=== PATIENT | male | born 1960 | race Caucasian/White ===

== ENCOUNTER → 2018-02-27 | Outpatient (CLI) | payer OTHER ==
--- NOTE | 2018-03-01 17:57 | ECHO ---
[email or web address] [address] [address] Main: [phone] Fax: Transthoracic Echocardiogram Name: KAN KERN MR#: [id number] Study Date: 02/27/2018 Study Time: 02:07 PM Date of : 1960 Age: 57 year(s) Height: ( ) Weight: ( ) BSA: Gender: Male Examination: Echo Indication: Murmur Image Quality: Excellent Contrast: Requested by: Saray Werner BP: / Heart Rate: Rhythm: Indication: Murmur Procedure Staff French Drawer: Genoveva Benites RDCS Reading Physician: Jorge Luis Whitten MD Requesting Provider: Conclusions: Severely dilated left ventricle. Global hypercontractility of the left ventricle. Normal RV function. The left atrium is severely dilated. The right atrium is normal in size. There is severe prolapse of the posterior leaflet of the mitral valve. Severe mitral valve regurgitation is present. The aortic valve is normal in appearance and function. The aortic valve is tri-leaflet. Mild tricuspid regurgitation is present. The pulmonary artery pressure is mildly increased. No pericardial effusion. Measurements: Chambers Valvular Assessment AV/MV Valvular Assessment TV/PV Normal Normal Normal Name Value Range Name Value Range Name Value Range Ao Neha (MM): 3.7 cm (2.2 cm-3.7 AV Vmax: 1.01 m/s (1 m/s-1.7 TR Vmax: 3.12 mm/s ( - ) cm) m/s) TR PGmax: 39 mmHg ( - ) IVSd (2D): 0.7 cm (0.6 cm-1.1 AV maxP mmHg ( - ) syst. PAP: 44 mmHg ( - ) cm) AV meanP mmHg ( - ) LVDd (2D): 7.0 cm (4.2 cm-5.9 LVOT Vmax: 0.62 m/s (0.7 m/s-1.1 cm) m/s) LVDs (2D): 4.2 cm (2.1 cm-4 ILAN (Vmax): 2.6 cm2 ( - ) cm) ILAN (VTI): 2.7 cm ( - ) LVPWd (2D): 0.8 cm (0.6 cm-1 MV maxP mmHg ( - ) cm) MV meanP mmHg ( - ) LVOTd 2.3 cm 2.3 cm mm MVA (Vmax): 1.2 m/s ( - ) LVEF (MOD4): 68 % (>=55 %) EF Range: 70-75 % Patient: KAN KERN Study Date: 02/27/2018 Page 1 of 2 02:07 PM Continued Measurements: Chambers Valvular Assessment AV/MV Valvular Assessment TV/PV Name Value Name Value Name Value LADs: 5.2 cm MV Annulus: 4.2 cm CVP (est.): 5 mmHg LADs Lon.3 cm MV VTI: 40.90 cm LA Area: 37.5 cm2 MR ERO: 1.010 cm2 LA Volume: 155 ml MR PISA radius: 17 mm MR Reg. Volume: 145 ml MR Reg. Fraction: 25 % Additional Vessels Name Value Ao Ascendin.4 cm Findings: Left Ventricle: Severely dilated left ventricle. No LV hypertrophy. Global hypercontractility of the left ventricle. The ejection fraction is estimated to be 70-75 %. No regional wall motion abnormality. Right Ventricle: Normal size right ventricle. Normal RV function. Left Atrium: The left atrium is severely dilated. Right Atrium: The right atrium is normal in size. Mitral Valve: There is severe prolapse of the posterior leaflet of the mitral valve. Severe mitral valve regurgitation is present. MV leaflets do not coapt.. Aortic Valve: The aortic valve is normal in appearance and function. The aortic valve is tri-leaflet. Trivial aortic valve regurgitation. Tricuspid Valve: The tricuspid valve is normal in appearance and function. Mild tricuspid regurgitation is present. The pulmonary artery pressure is mildly increased. Pulmonic Valve: The pulmonic valve is normal in appearance and function. Trivial to mild pulmonic valve regurgitation. Aorta: The aorta is normal. Pericardium: No pericardial effusion. (No Signature Object) Patient: KAN KERN Study Date: 02/27/2018 Page 2 of 2 02:07 PM [id number]
== END ==
LOC: FCP 13:26
PROVIDERS: ATTEND Physician Assistant Medical
DX: I35.0 Nonrheumatic aortic (valve) stenosis (principal); I51.7 Cardiomegaly; I34.1 Nonrheumatic mitral (valve) prolapse

== ENCOUNTER 2018-04-11 09:15 | Inpatient (IN) | payer OTHER ==
[2018-04-11] MEDS ORDERED: FAMOTIDINE 20 MG TAB PO ONE (09:18)
[2018-04-11] MEDS ORDERED: DIAZEPAM 5 MG TAB PO ONE (09:18)
[2018-04-11] MEDS ORDERED: ASPIRIN EC 325 MG TAB PO ONE ×2 (09:18→09:35)
[2018-04-11] MEDS ORDERED: NS 1,000 ML IV ONE (09:18)
[2018-04-11] MEDS ORDERED: diphenhydrAMINE 25 MG CAP PO ONE ×2 (09:18→09:35)
[2018-04-11] MEDS ORDERED: LIDOCAINE 1% 300 MG/30 ML SDV ONE (09:32)
[2018-04-11] MEDS ORDERED: fentaNYL 100 MCG/2 ML INJ ONE ×2 (09:33→10:27)
[2018-04-11] MEDS ORDERED: MIDAZOLAM 2 MG/2 ML VIAL ONE ×2 (09:33→10:28)
[2018-04-11] MEDS ORDERED: IOPAMIDOL (ISOVUE-370) 150 ML BTL IV ONE (09:33)
[2018-04-11] MEDS ORDERED: FAMOTIDINE 20 MG TAB ONE (09:35)
[2018-04-11] MEDS ORDERED: DIAZEPAM 5 MG TAB ONE (09:35)
[2018-04-11 09:54] LABS: PLATELET COUNT 238 10^3/uL (150-400)
--- NOTE | 2018-04-11 09:54 | PDHPUP ---
History & Physical Update H&P update statement: This history and physical update is based on an assessment of the patient which was completed after admission or registration (within 24 hours), but prior to the surgery/procedure. H&P update: H&P reviewed & patient examined, no change in patient's condition since H&P completed
--- NOTE | 2018-04-11 09:54 | PDPROPOC ---
Sedation Plan of Care Sedation Plan of Care: mental status noted, patient educated of risks, benefits , alternatives, patient can tolerate sedation ASA Classification: ASA 2 Planned drugs: fentanyl, midazolam Mallampati Score: Class 2 Mallampati Reference Image: Patient passed 3-3-2 rule?: Yes
--- NOTE | 2018-04-11 09:58 | PDGENHP ---
History & Physical Chief Complaint: severe MR History of Present Illness: 57 yo male wih severe MR. Cath for potential surgery Pertinent Past, Social, Family History: 4 beers daily Relevant Physical Exam: rr s1 s2 2/6 bipin. cta b. soft nt, ng. no edema Cardiorespiratory Assessment: see above
[2018-04-11 10:02] LABS: INR 0.97 (0.83-1.16); PROTIME(PATIENT) 13.1 SEC (12.0-15.0)
[2018-04-11] MEDS ORDERED: ALPRAZolam 0.5 MG TAB PO PRN ×2 (11:13→11:54)
[2018-04-11] MEDS ORDERED: ZOLPIDEM TARTRATE 5 MG TAB PO PRN (11:54)
--- NOTE | 2018-04-11 12:15 | PDGENHP ---
History and Physical - Chief Complaint severe MR - History of Present Illness 57M seen last on 03/08 for surgical evaluation of severe MR here admitted in advance of elective repair for risk stratification. LHC was performed today and ruled-out CAD. In brief, a murmur was discovered at a check-up with his PCP. He was sent to see cardiology where an ECHO confirmed severe MR with severely dilated LA/LV, mild MR, trivial AI and a LVEF of 70%. Since learning of the murmur the pt states he experiences anxiety and takes Xanax to relax. Pt appreciates extra heart-beats and denies weakness, lethargy, presyncope, syncope, CP, SOB, PND, orthopnea, abd fullness, urinary problems, or BLE edema. Pt denies other medical issues. His only surgery was a hip replacement. He denies tobacco abuse and states he drinks 5-6 "light" beers every night for as long as he can remember and denies withdrawal sxs if he takes a night off. History Information - Allergies/Home Medication List Allergies/Adverse Reactions: No Known Allergies Allergy (Verified 04/03/18 14:30) Home Medications: ALPRAZolam [Xanax 0.5 MG (*)] 0.5 mg PO HS PRN 04/04/18 [Last Taken Unknown] Cholecalciferol Vit D3 [Vitamin D3 (*)] 1,000 units PO DAILY 04/04/18 [Last Taken Unknown] Herbals/Supplements -Info Only 1 ea PO DAILY 04/04/18 [Last Taken Unknown] Melatonin [Melatonin 3 MG (*)] 3 mg PO HS PRN 04/04/18 [Last Taken Unknown] I have personally reviewed and updated: medical history (as per HPI), social history, surgical history - Surgical History Additional surgical history: right hip replacement - Family History Positive for: non-pertinent - Social History Smoking Status: Never smoked Alcohol Use: Heavy Drug Use: None Review of Systems Review of Systems: ROS: 10pt was reviewed & negative except for what was stated in HPI & below Physical Exam Physical Exam: Constitutional: no apparent distress, appears nourished, not in pain Eyes: anicteric sclera Ears, Nose, Mouth, Throat: moist mucous membranes, hearing normal, ears appear normal, no oral mucosal ulcers Cardiovascular: no murmur, rub, or gallop, systolic murmur Respiratory: no respiratory distress, no rales or rhonchi, clear to auscultation Gastrointestinal: normoactive bowel sounds, soft, non-tender abdomen, no palpable masses Genitourinary: no bladder fullness, no bladder tenderness Skin: warm, normal color, no rashes or abrasions, no fluctuance, no induration, No mottled Musculoskeletal: full muscle strength, no muscle tenderness, normal joint ROM Neurologic: AAOx3, sensation intact bilaterally Psychiatric: interacting appropriately, not anxious, not encephalopathic, thought process linear Lab Data & Imaging Review 04/11/18 09:31 04/11/18 09: WBC 4.64 10^3/uL (3.80-9.50) 04/11/18 09: RBC 4.95 10^6/uL (4.40-6.38) 04/11/18 09: Hgb 15.5 g/dL (13.7-17.5) 04/11/18 09: Hct 45.6 % (40.0-51.0) 04/11/18 09: MCV 92.1 fL (81.5-99.8) 04/11/18 09: MCH 31.3 pg (27.9-34.1) 04/11/18 09: MCHC 34.0 g/dL (32.4-36.7) 04/11/18 09: RDW 12.2 % (11.5-15.2) 04/11/18 09: Plt Count 238 10^3/uL (150-400) 04/11/18: MPV 9.5 fL (8.7-11.7) 04/11/18 09: Neut % (Auto) 53.0 % (39.3-74.2) 04/11/18 09: Lymph % (Auto) 30.6 % (15.0-45.0) 04/11/18 09: [place] % (Auto) 11.4 % (4.5-13.0) 04/11/18 09: Eos % (Auto) 3.9 % (0.6-7.6) 04/11/18 09: Baso % (Auto) 0.9 % (0.3-1.7) 04/11/18 09:31 Nucleat RBC Rel Count 0.0 % (0.0-0.2) 04/11/18 09:31 Absolute Neuts (auto) 2.46 10^3/uL (1.70-6.50) 04/11/18 09:31 Absolute Lymphs (auto) 1.42 10^3/uL (1.00-3.00) 04/11/18 09:31 Absolute Monos (auto) 0.53 10^3/uL (0.30-0.80) 04/11/18 09:31 Absolute Eos (auto) 0.18 10^3/uL (0.03-0.40) 04/11/18 09:31 Absolute Basos (auto) 0.04 10^3/uL (0.02-0.10) 04/11/18 09:31 Absolute Nucleated RBC 0.00 10^3/uL (0-0.01) 04/11/18 09: Immature Gran % 0.2 % (0.0-1.1) 04/11/18 09: Immature Gran # 0.01 10^3/uL (0.00-0.10) 04/11/18 09:31 PT 13.1 SEC (12.0-15.0) 04/11/18 09:31 INR 0.97 (0.83-1.16) 04/11/18 09:31 Sodium 138 mEq/L (135-145) 04/11/18 09:31 Potassium 4.4 mEq/L (3.3-5.0) 04/11/18 09:31 Chloride 102 mEq/L (97-110) 04/11/18 09:31 Carbon Dioxide 30 mEq/l (22-31) 04/11/18 09:31 Anion Gap 6 mEq/L (6-14) 04/11/18 09:31 BUN 13 mg/dL (7-23) 04/11/18 09:31 Creatinine 0.8 mg/dL (0.7-1.3) 04/11/18 09:31 Estimated GFR > 60 04/11/18 09:31 Glucose 70 mg/dL (70-100) 04/11/18 09:31 Hemoglobin A1c 5.4 % (4.0-6.0) 04/11/18 09:31 Estim Average Glucose 108 mg/dL (68-126) 04/11/18 09: Calcium 9.3 mg/dL (8.5-10.4) 04/11/18 09: Magnesium 2.1 mg/dL (1.6-2.3) 04/11/18 09:31 Triglycerides 120 mg/dL (40-150) 04/11/18 09: Cholesterol 233 mg/dL (140-220) H 04/11/18 09: Cholesterol Risk Factr 0.5 (0.2-1.0) 04/11/18 09: LDL Cholesterol, Calc 138 mg/dL (80-100) H 04/11/18 09:31 LDL Risk Factor 0.8 (0.2-1.0) 04/11/18 09: VLDL Cholesterol 24 mg/dL (8-25) 04/11/18 09:31 Non-HDL Cholesterol 162 mg/dL (90-129) H 04/11/18 09:31 HDL Cholesterol 71 mg/dL (40-65) H 04/11/18 09:31 LDL/HDL Ratio 1.94 RATIO (1.00-3.64) 04/11/18 09:31 Cholesterol/HDL Ratio 3.28 RATIO (1.00-4.97) 04/11/18 09:31 Patient ABO/Rh O POSITIVE 04/11/18 09: Antibody Screen NEGATIVE 04/11/18 09:31 Imaging Review: as per HPI Visualized and Interpreted Chest x-ray results: No Chest X-Ray results: other (pending) Visualized and Interpreted EKG results: Yes EKG Interpretation: Positive for: LVH, normal sinsus rhythm Assessment & Plan Assessment: severe MR, possible atrial fibrillation Plan: - For mitral valve repair/replace - Holter monitor results pending
--- NOTE | 2018-04-11 13:35 | PDMN ---
Medical Necessity Medical necessity: 57 yo w/ severe mitral regurg, scheduled for valve replacement, C[place] 74377, [facility] [place] Valve [place] or Repair, [facility] only
[2018-04-11] MEDS ORDERED: CARDIOPLEGIC SOLUTION 1,052.8 ML PF ONE (14:30)
[2018-04-11] MEDS ORDERED: BEER 1 EACH EA PO SCH (18:00)
[2018-04-11] MEDS ORDERED: ACETAMINOPHEN 500 MG TAB PO PRN (18:41)
--- NOTE | 2018-04-11 18:54 | CPIP ---
DATE OF PROCEDURE: 04/11/2018 INDICATION FOR PROCEDURE: Preop for mitral valve surgery. PROCEDURES: 1. Nonselective right groin sheathogram. 2. A #7-Monegasque sheath in the common femoral vein. 3. Right heart catheterization with Chester-Eleanor catheter. 4. Bilateral selective coronary angiography. 5. Left heart catheterization. 6. Left ventriculogram. HISTORY: Briefly, this is a 57-year-old male, with history of severe mitral regurgitation, who has b een admitted electively for right and left heart catheterization. DESCRIPTION OF PROCEDURE: Informed consent obtained. Brought to [facility], where the right groin was prep ped and draped in sterile fashion. Using lidocaine, a short #6-Monegasque sheath placed in the right common femoral artery and a #7-Monegasque s freddy in the right common femoral vein. Through the #7-Monegasque sheath, a Chester-Eleanor catheter was advan miguel. Wedge pressure was a mean of 24 with an A-wave of 26, V-wave 28. PA pressure was measured with a systolic of 50, diastolic of 18, mean of 28. RV pressure systolic 50, diastolic 5, end of 12. RV pressure systolic 49, diastolic 6, end of 12. RA pressure was mean of 8, A-wave 12, V-wave 9. Card iac output was measured to be 5.0, with a Haris index of 2.5. AO sat was 94%. PA sat was 72%. Chester- Eleanor catheter was then removed. The JL4 catheter was then advanced to the left coronary artery. Injection in the left coronary arter y revealed a normal long left main. Left circumflex artery gave off a small marginal proximally and a second marginal distally, but overall was healthy and free of disease. There was a ramus intermedi us which was healthy and free of disease. LAD was a long vessel which wrapped around the apex. LAD had a medium-size diagonal artery coming off the mid portion which was healthy and free of disease. After these images were obtained, the JL4 catheter was removed. The JR4 catheter was advanced into the right coronary artery. Images of the right coronary artery re vealed normal os, proximal and mid RCA. The RPD and RPLS appeared to be healthy and free of disease. JR4 catheter was then removed over the pigtail wire. Pigtail catheter was then advanced to the left ventricle. EDP was 20 mmHg. Left ventriculogram in t he MOHR projection showed an EF of 60% to 65%, with normal wall motion. Of note, there was MR noted w ith the ventriculogram, with at least a moderately dilated left atrium. No pullback gradient between the LV and the aorta. Pigtail catheter was removed over the 0.035 wire. Right groin was closed with a #6-Monegasque Angio-Seal. The #7-Monegasque sheath was closed with manual pres sure. The patient tolerated the procedure well, with no complications. IMPRESSION: 1. Essentially normal coronary arteries. 2. Moderate pulmonary hypertension with normal cardiac output. 3. Normal left ventricular function with moderate mitral regurgitation with dilated left atrium. PLAN: The patient will be admitted electively for mitral valve surgery per Dr. Reyes. /[id number]/MODL
[2018-04-11] MEDS ORDERED: CHLORHEXIDINE GLUC HIBICLENS 118 ML BTL TP SCH (21:00)
[2018-04-11] MEDS ORDERED: ALPRAZolam 1 MG TAB PO PRN (22:00)
[2018-04-12] MEDS ORDERED: AMINOCAPROIC ACID 5 GM/20 ML VIAL IV ONE (06:00)
[2018-04-12] MEDS ORDERED: NOREPINEPHRINE BITARTRATE 16 MG in NS 250 ML IV ONE (06:00)
[2018-04-12] MEDS ORDERED: ceFAZolin 2 GM/DEXTROSE 100 ML IV ONE (06:00)
[2018-04-12] MEDS ORDERED: CITRATE DEXTROSE SOLN 500 ML BAG MISC ONE (06:00)
[2018-04-12] MEDS ORDERED: MUPIROCIN 2% 22 GM OINT NS ONE (06:00)
[2018-04-12] MEDS ORDERED: MANNITOL 25% 12.5 GM/50 ML VIAL IVP ONE (06:00)
[2018-04-12] MEDS ORDERED: niCARdipine/NACL 200 ML IV ONE (06:00)
[2018-04-12] MEDS ORDERED: CARDIOPLEGIC SOLUTION 1,052.8 ML PF ONE (06:00)
[2018-04-12] MEDS ORDERED: INSULIN REGULAR HUMAN 100 UNIT in NS 100 ML IV ONE (06:00)
[2018-04-12] MEDS ORDERED: PHENYLEPHRINE HCL 50 MG in NS 250 ML IV ONE (06:00)
[2018-04-12] MEDS ORDERED: LR 1,000 ML IV SCH (06:30)
--- NOTE | 2018-04-12 07:23 | PDHPUP ---
History & Physical Update H&P update statement: This history and physical update is based on an assessment of the patient which was completed after admission or registration (within 24 hours), but prior to the surgery/procedure. H&P update: H&P reviewed & patient examined, no change in patient's condition since H&P completed (Holter monitor report reviewed - no AF, will proceed with MV repair/replace)
[2018-04-12] MEDS ORDERED: PROTAMINE SULFATE 50 MG/5 ML VIAL IVP ONE (07:44)
[2018-04-12] MEDS ORDERED: ALBUMIN 5% 250 ML BOTTLE IV ONE (07:44)
[2018-04-12] MEDS ORDERED: NA BICARBONATE 50 MEQ/50 ML VIAL ONE (07:45)
[2018-04-12] MEDS ORDERED: CALCIUM CHLORIDE 1 GM/10 ML INJ ONE (07:45)
[2018-04-12] MEDS ORDERED: MILRINONE/DEXTROSE/100 ML BAG IV ONE (07:45)
[2018-04-12] MEDS ORDERED: HEPARIN 10,000 UNIT/10 ML MDV (1,000 UNIT/ML) ONE (07:46)
[2018-04-12] MEDS ORDERED: LIDOCAINE 2% 100 MG/5 ML SYR ONE ×2 (07:46→09:08)
[2018-04-12] MEDS ORDERED: CITRATE DEXTROSE SOLN 500 ML BAG ONE (07:46)
[2018-04-12] MEDS ORDERED: DOPamine/DEXTROSE 400 MG/250 ML BAG IV ONE (07:46)
[2018-04-12] MEDS ORDERED: AMIODARONE HCL 150 MG/3 ML VIAL ONE (07:47)
[2018-04-12] MEDS ORDERED: ceFAZolin 1 GM VIAL ONE (07:47)
[2018-04-12] MEDS ORDERED: ADENOSINE 6 MG/2 ML VIAL ONE (07:47)
[2018-04-12] MEDS ORDERED: methylPREDNISolone SOD SUCC 1 GM/8 ML VIAL ONE (07:47)
[2018-04-12] MEDS ORDERED: MAGNESIUM SULFATE 1 GM/2 ML VIAL ONE (07:47)
[2018-04-12] MEDS ORDERED: niCARdipine/NACL/200 ML BAG IV ONE (07:47)
[2018-04-12] MEDS ORDERED: NITROGLYCERIN/D5W 50 MG/250 ML BOTTLE IV ONE (07:48)
[2018-04-12] MEDS ORDERED: MIDAZOLAM 2 MG/2 ML VIAL IVP ONE (08:54)
[2018-04-12] MEDS ORDERED: MINERAL OIL 10 ML VIAL ONE (08:57)
--- NOTE | 2018-04-12 09:00 | PDANEPAE ---
ANE History of Present Illness open MVR ANE Past Medical History - Cardiovascular History Hx Hypertension: No Hx Arrhythmias: Yes Hx Chest Pain: No Hx Coronary Artery / Peripheral Vascular Disease: No Hx CHF / Valvular Disease: Yes Hx Palpitations: No Cardiovascular History Comment: heart murmur discovered recently by PCP - Pulmonary History Hx COPD: No Hx Asthma/Reactive Airway Disease: No Hx Recent Upper Respiratory Infection: No Hx Oxygen in Use at Home: No Hx Sleep Apnea: No Sleep Apnea Screening Result - Last Documented: Negative - Neurologic History Hx Cerebrovascular Accident: No Hx Seizures: No Hx Dementia: No - Endocrine History Hx Diabetes: No - Renal History Hx Renal Disorders: No - Liver History Hx Hepatic Disorders: No - Neurological & Psychiatric Hx Hx Neurological and Psychiatric Disorders: Yes Neurological / Psychiatric History Comment: recent anxiety and depression has xanax for sleep - Cancer History Hx Cancer: No - Congenital Disorder History Hx Congenital Disorders: No - GI History Hx Gastrointestinal Disorders: No - Other Health History Other Health History: wears glasses/ contacts. eczema- brought on by peanuts - Chronic Pain History Chronic Pain: No - Surgical History Prior Surgeries: 04/28/15 right ELENA with Tanvi. 2015 COLONOSCOPY ANE Review of Systems Review of Systems: - Exercise capacity METS (RN): 4 METS ANE Patient History - Allergies Allergies/Adverse Reactions: No Known Allergies Allergy (Verified 04/03/18 14:30) - Home Medications Home medications: home medication list seen and reviewed Home Medications: ALPRAZolam [Xanax 0.5 MG (*)] 0.5 mg PO HS PRN 04/04/18 [Last Taken Unknown] Cholecalciferol Vit D3 [Vitamin D3 (*)] 1,000 units PO DAILY 04/04/18 [Last Taken Unknown] Herbals/Supplements -Info Only 1 ea PO DAILY 04/04/18 [Last Taken Unknown] Melatonin [Melatonin 3 MG (*)] 3 mg PO HS PRN 04/04/18 [Last Taken Unknown] - NPO status NPO Status: no food or drink >8 hours NPO Since - Liquids (Date): 04/12/18 NPO Since - Liquids (Time): 00:00 NPO Since - Solids (Date): 04/11/18 NPO Since - Solids (Time): 22:00 - Anes Hx Anes Hx: no prior problems - Smoking Hx Smoking Status: Never smoked - Alcohol Use Alcohol Use: Heavy - Family Anes Hx Family Anes Hx: none Family Hx Anesthesia Complications: none ANE Labs/Vital Signs - Labs Result Diagrams: 04/11/18 09:31 04/11/18 09:31 - Vital Signs Blood Pressure: 127/86 Heart Rate: 69 Respiratory Rate: 18 O2 Sat (%): 93 Height: 178 cm Weight: 79.424 kg ANE Physical Exam - Airway Neck exam: FROM Mallampati Score: Class 2 Mouth exam: normal dental/mouth exam - Pulmonary Pulmonary: no respiratory distress - Cardiovascular Cardiovascular: regular rate and rhythym - ASA Status ASA Status: II ANE Anesthesia Plan Anesthesia Plan: general endotracheal anesthesia Lines/Monitors: arterial line, central line, PAM
[2018-04-12] MEDS ORDERED: fentaNYL 100 MCG/2 ML INJ ONE (09:04)
[2018-04-12] MEDS ORDERED: MIDAZOLAM 2 MG/2 ML VIAL ONE (09:04)
[2018-04-12] MEDS ORDERED: REMIFENTANIL HCL 1 MG VIAL ONE (09:04)
[2018-04-12] MEDS ORDERED: PROPOFOL/EMULSION 500 MG/50 ML BOTTLE IV ONE (09:04)
[2018-04-12] MEDS ORDERED: ROCURONIUM 100 MG/10 ML VIAL ONE (09:05)
[2018-04-12] MEDS ORDERED: LIDOCAINE HCL 160 MG/4 ML LTA KIT TP ONE (09:07)
[2018-04-12] MEDS ORDERED: ePHEDrine SULFATE 25 MG/5 ML SYR ONE (09:09)
[2018-04-12] MEDS ORDERED: PHENYLEPHRINE HCL 100 MCG/ML SYR ONE (09:09)
[2018-04-12] MEDS ORDERED: ONDANSETRON 4 MG/2 ML VIAL ONE (09:13)
[2018-04-12] MEDS ORDERED: DEXAMETHASONE 4 MG/ML VIAL ONE ×2 (09:13)
[2018-04-12] MEDS ORDERED: PROPOFOL 200 MG/20 ML VIAL ONE (11:08)
[2018-04-12] MEDS ORDERED: DEXMEDETOMIDINE HCL 400 MCG in NS 100 ML IV SCH (11:30)
--- NOTE | 2018-04-12 11:47 | ASMTCASEMG ---
Living Arrangements What is your living Answers: With Spouse arrangement? Who do you live with? Type Of Residence What kind of residence do Answers: House you live in? Discharge Plan Comments Coordination Status Comments Notes: Patient is a 57yo male whose PCP discovered a heart murmur and sent him for an ECHO which confirmed severe MR with severely dilated LA/LV, mild MR, trivial AI and a LVDF of 70%. Patient to go for mitral valve repair/replace. No therapies ordered at this time. D/C plan TBD. CM will follow. Date Signed: 04/12/2018 11:46 AM Electronically Signed By:Lilliam Rodgers LCSW
[2018-04-12] MEDS ORDERED: ACETAMINOPHEN 325 MG TAB PO PRN (12:51)
[2018-04-12] MEDS ORDERED: PANTOPRAZOLE SODIUM 40 MG VIAL IVP ONE ×2 (12:51→15:45)
[2018-04-12] MEDS ORDERED: ACETAMINOPHEN 650 MG SUPP PR PRN (12:51)
[2018-04-12] MEDS ORDERED: SODIUM CL NASAL 45 ML BTL EACHNARE PRN (12:51)
[2018-04-12] MEDS ORDERED: CEPACOL LOZENGE PO PRN (12:51)
[2018-04-12] MEDS ORDERED: LACTULOSE 20 GM/30 ML UDCUP PO PRN (12:51)
[2018-04-12] MEDS ORDERED: BISACODYL 10 MG SUPP PR PRN (12:51)
[2018-04-12] MEDS ORDERED: HYDROCODONE/APAP 5/325 TAB PO PRN (12:51)
[2018-04-12] MEDS ORDERED: fentaNYL 100 MCG/2 ML INJ IVP PRN (12:51)
[2018-04-12] MEDS ORDERED: ONDANSETRON 4 MG/2 ML VIAL IVP PRN (12:51)
[2018-04-12] MEDS ORDERED: D50W 25 GM/50 ML SYR IVP PRN (12:51)
[2018-04-12] MEDS ORDERED: ONDANSETRON DISINTEGRATING 4 MG TAB PO PRN (12:51)
[2018-04-12] MEDS ORDERED: POTASSIUM Cl (KCl) 50 ML IV PRN (12:51)
[2018-04-12] MEDS ORDERED: MAGNESIUM HYDROXIDE 30 ML UDCUP PO PRN (12:51)
[2018-04-12] MEDS ORDERED: METOCLOPRAMIDE 10 MG/2 ML VIAL IVP PRN (12:51)
[2018-04-12] MEDS ORDERED: MEPERIDINE 25 MG/0.5 ML AMP IVP PRN (12:51)
[2018-04-12] MEDS ORDERED: INSULIN REGULAR HUMAN 100 UNIT in NS 100 ML IV SCH (13:00)
[2018-04-12] MEDS ORDERED: NS 1,000 ML IV SCH (13:00)
[2018-04-12] MEDS ORDERED: niCARdipine/NACL 200 ML IV SCH (13:00)
[2018-04-12] MEDS: ALBUMIN 5% 250 ML IV PRN ×2 (14:00→14:48)
--- NOTE | 2018-04-12 14:20 | PDCONSULT ---
Senior Director Of Strategy Note: ASSESSMENT AND PLAN 57-year-old male with severe symptomatic MR status post MVR, POD 0 # Severe MR, s/p MVR via median sternotomy # post operative respiratory failure, expected # etoh dependence # anxiety PLAN # Aggressive pulmonary toilet # Early mobilization # monitor for signs and symptoms of etoh w/d # asa 81 # melatonin qhs prn # Feeding - advance diet as tolerated # Analgesia APAP, fentanyl # Sedation propofol # Thromboprophylaxis - SQ hep when able # Head of bed elevated # Ulcer prophylaxis - PPI # Glucose SSI # Skin no skin breakdown # Delirium - delirium precautions CC Murmur HPI I was asked by Dr. Raheem Reyes of cardiothoracic surgery to evaluate the patient for postoperative ICU care. Addy is a very pleasant 57-year-old male history of mild anxiety and palpitations and was noted to have a murmur by his PCP. He was subsequently referred for an echocardiogram and then to Cardiology. He was found to have severe mitral regurgitation with severe mitral leaflet prolapse with severe LA and LV dilation. He denied syncopal symptoms chest pain, shortness of breath, leg swelling, however cold intolerance, fevers or chills. He drinks 5-6 drinks per night denies tobacco smoke note illicit drugs. Medications A present lung, Krill oil, magnesium, tumor, vitamin-D Allergies no known drug allergies Family history no family history of severe MR Social history 5-6 drinks per day completed college, denies tobacco or alcohol single Review of systems Unable to be obtained secondary to patient's altered mental status postoperatively Physical exam Vitals Temperature 36 degrees, heart rate 59, blood pressure 90/46 map 60, respiratory rate 20 sat 100% on 2 L nasal cannula General resting in bed did show old, no acute distress HEENT oropharynx clear good dentition normocephalic Neck trachea midline the T-tube is been removed no lymphadenopathy Chest midline sternotomy incision clean dry and intact, regular no murmurs rubs or gallops appreciated Lungs clear to auscultation bilaterally Abdomen subxiphoid mediastinal drains sutured in place, soft Extremities SCDs in place no pedal edema Skin warm well perfused, no rashes Neurologic somnolent arousable unable to answer questions postoperatively Data I reviewed patient's laboratory data and radiographic images Postoperative chest x-ray with trace apical pneumothorax, the lung volumes with bibasilar atelectasis, right IJ in place, postoperative cardiac changes as expected EVENTS 04/07/18 intubation, bronchoscopy CX Data
[2018-04-12] MEDS: KETOROLAC 15 MG/1 ML SDV IVP PRN ×2 (14:41→20:48)
[2018-04-12] MEDS: BEER 1 EACH EA PO SCH (16:35)
--- NOTE | 2018-04-12 17:23 | GOP ---
DATE OF OPERATION: 04/12/2018 SURGEON: Raheem Reyes DO ATTRACTION WORKER: Hieu ANESTHESIOLOGIST: Alexey. PREOPERATIVE DIAGNOSIS: Severe mitral insufficiency. POSTOPERATIVE DIAGNOSIS: Severe mitral insufficiency. PROCEDURE PERFORMED: 1. Complex mitral valve repair with triangular P2 resection and chordal reconstruction with 4 [place]-T ex chords to P2. 2. A 32 Physio annuloplasty ring. 3. A 40 mm atrial clip to left atrial appendage. FINDINGS: Patient presented with severe mitral insufficiency and enlarged left atrium and left ventr icle. He was referred for surgical intervention. He was consented for surgery. His coronary cathet erization was normal. DESCRIPTION OF PROCEDURE: He was brought to the operating room, intubated. monitoring lines were pl aced. He was prepped and draped in sterile classical manner. Sternotomy was performed. He was heparinized, cannulated. Bypass was begun and cardioplegic arrest was obtained with [place] solution, topical hypothermia, and systemic cooling. Initially, a very large left atrial appendage was clipped with a 40 mm atrial clip and was excised in order to decompress it and confirm lack of patency. We then exposed the mitral valve thr ough the right superior pulmonary vein. A retractor was placed. The valve was inspected. He had a flail P2. P1, P3, and the entire anterior leaflet were intact. 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 Circumferential annular sutures of 2-0 Tycron were placed for better exposure. We did a triangular r esection of the midportion of P2, closed with 5-0 [place]-Luis interrupted sutures. I then created 4 cho rdae, 2 from each papillary muscle and placed it on the leading edge of P2, and measured against P1 a nd P3, and reconstructed chordae to that in the standard fashion with 4-0 [place]-Luis. Distention of th e ventricle revealed no regurgitation whatsoever with the posterior leaflet being 1/3 of the height o f the entire AP diameter and the anterior leaflet being 2/3. To avoid RONAN, A 32 Physio ring was measured to the anterior leaflet and secured in place with Cor-Kno ts. Left atrium was closed. CO2 had been infused. He was kept in Trendelenburg when the cross-clam p was removed with suction on the ascending aortic vent and LV sump. when no further air was identif ied, he was easily weaned from bypass. Transesophageal echo confirmed excellent coaptation and no RONAN, and no regurgitation. Remained in si nus rhythm. He was weaned from bypass and heparin was reversed with protamine. The cannula was sulaiman ramon and oversewn. 2 ventricular pacing wires, 2 mediastinal and 1 right pleural drain were placed. The thymic fat and pericardium were closed. Chest was closed in standard fashion. The patient was r eturned to ICU in stable condition, extubated. /[id number]/MODL
[2018-04-12] MEDS: ceFAZolin 2 GM/DEXTROSE 100 ML IV SCH (17:30)
--- NOTE | 2018-04-12 18:18 | POSTANESTH ---
Post Anesthetic Evaluation Cardiovascular Status: Normal, Stable Respiratory Status: Normal, Stable Level of Consciousness/Mental Status: Can Participate in Eval Pain Control: Adequate, Prn Tx Ordered Nausea/Vomiting Control: Adequate, Prn Tx Ordered Complications Possibly Related to Anesthesia: None Noted
[2018-04-12] MEDS ORDERED: NOREPINEPHRINE BITARTRATE 16 MG in NS 250 ML IV SCH (19:00)
[2018-04-12] MEDS: MUPIROCIN 2% 22 GM OINT NS SCH (20:49)
[2018-04-12] MEDS: SENNOSIDES/DOCUSATE SODIUM TAB PO SCH (20:51)
[2018-04-13] MEDS: ceFAZolin 2 GM/DEXTROSE 100 ML IV SCH ×3 (00:47→17:21)
[2018-04-13] MEDS: KETOROLAC 15 MG/1 ML SDV IVP PRN ×3 (02:53→18:15)
[2018-04-13 04:55] LABS: PLATELET COUNT 162 10^3/uL (150-400)
[2018-04-13 05:02] LABS: INR 1.12 (0.83-1.16); PROTIME(PATIENT) 14.6 SEC (12.0-15.0)
[2018-04-13] MEDS: HEPARIN 5,000 UNIT/0.5 ML INJ SC SCH ×3 (05:59→20:42)
--- NOTE | 2018-04-13 06:30 | SOAPPROG ---
SOAP Progress Note Assessment/Plan: Assessment: POD#1 Complex MV repair w #34 Physio ring, prophylactic AtriClip ligation left atrial appendage Severe MR - Amenable to complex repair. Extubated in the OR. Stable early postop course. Antithrombotic prophylaxis with Coumadin x 3 mo, target INR 2-3. AF prophylaxis with BB as allowed by HR. 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 No prolonged vasoactive support. No sig fluid overload. Diuresis when appropriate. Acute expected blood loss anemia - Stable. No blood products transfused. VTE prophylaxis with SCDs/SQ hep until INR > 1.7. Plan: Routine POD#1 orders re wires, lines, drains, orals and mobility. Colloid prn CVP < 15 if SBP < 100. Hydralazine 5 mg q6h prn SBP > 150. Start coumadin today. 2.5 mg. Probable tx to PCU later today. 04/13/18 06:28 Subjective: Doing ok. Comfortable at rest. OOB without dizziness. Thirsty. Objective: Vital Signs Temp Pulse Resp BP Pulse Ox 36.8 C 56 L 22 H 100/68 91 L 04/13/18 06:00 04/13/18 06:00 04/13/18 06:00 04/13/18 06:00 04/13/18 06:00 Laboratory Results 04/13/18 04:40 04/13/18 04:40 04/12/18 04/13/18 04/14/18 05:59 05:59 05:59 Intake Total 350 1579.3 Output Total 3125 1795 Balance -2775 -215.7 PT 14.6 SEC (12.0-15.0) 04/13/18 04:40 INR 1.12 (0.83-1.16) 04/13/18 04:40 Nicardipine yest pm for elev BP, off overnoc. HR consistently sinus 50s-60s. No backup pacing. Stable 3 lpm O2 req. CXR-> No PTX, min pulm vasc congestion, no effusions. No sig CTOP. Vigorous diuresis w neg fluid balance. Labs as expected. Physical Exam - Physical Exam General Appearance: alert, no apparent distress Respiratory: lungs clear (grossly), other (blakes x 3 y-d to pleurovac, serosang drainage, no air leak) Cardiac/Chest: regular rate, rhythm, other (Sternotomy CDI. V wires intact.) Abdomen: normal bowel sounds, non-tender, soft Skin: warm/dry Extremities: swelling (trace) ICD10 Worksheet Patient Problems: Problems Problem Status Onset Severe mitral regurgitation Acute - ICD10 Problem Qualifiers (1) Severe mitral regurgitation
[2018-04-13] MEDS: oxyCODONE IR 5 MG TAB PO PRN ×5 (08:00→21:33)
[2018-04-13] MEDS: SENNOSIDES/DOCUSATE SODIUM TAB PO SCH ×2 (09:12→20:41)
[2018-04-13] MEDS: PANTOPRAZOLE SODIUM 40 MG TAB PO SCH (09:12)
[2018-04-13] MEDS: MUPIROCIN 2% 22 GM OINT NS SCH ×2 (09:12→21:37)
[2018-04-13] MEDS: ASPIRIN 81 MG CHEWABLE TAB PO SCH (09:13)
[2018-04-13] MEDS ORDERED: traMADol 50 MG TAB PO PRN (10:27)
--- NOTE | 2018-04-13 12:29 | PDINTPN ---
Veterinary Virus Serum Inspector Progress Note Assessment/Plan: ASSESSMENT AND PLAN 57-year-old male with severe symptomatic MR status post MVR and YELENA occlusion, POD 1, doing well # Severe MR, s/p MVR with YELENA occlusion. # post operative respiratory failure, resolved # etoh dependence # anxiety PLAN # Aggressive pulmonary toilet # Early mobilization # monitor for signs and symptoms of etoh w/d # asa 81 # melatonin qhs prn # suggest multivitamin and folic acid given extensive etoh history # Feeding - advance diet as tolerated # Analgesia CTS # Sedation melatonin prn # Thromboprophylaxis - warfarin # Head of bed elevated # Ulcer prophylaxis - PPI # Glucose SSI # Skin no skin breakdown # Delirium - delirium precautions # Downgrade to PCU if okay by CTS 04/13/18 12:31 Subjective: Surgery yesterday, extubated without difficulty, pain control improving, improve mental status. Ambulating. Patient complained of mild right-sided chest pain but otherwise no headaches no excessive anxiety, no shortness of breath, no leg swelling, fevers or chills Objective: Vital Signs Temp Pulse Resp BP Pulse Ox 36.3 C 57 L 22 H 128/75 H 95 04/13/18 07:00 04/13/18 08:00 04/13/18 08:00 04/13/18 08:00 04/13/18 08:00 Laboratory Results 04/13/18 04:40 04/12/18 04/13/18 04/14/18 05:59 05:59 05:59 Intake Total 350 1579.3 450 Output Total 3125 1795 80 Balance -2775 -215.7 370 PT 14.6 SEC (12.0-15.0) 04/13/18 04:40 INR 1.12 (0.83-1.16) 04/13/18 04:40 Chest x-ray reviewed interpreted by myself. Subxiphoid drains in place, right IJ line in appropriate position, interval improvement in lung parenchyma, no pneumothorax. Physical Exam - Physical Exam EENT: PERRL/EOMI, normal ENT inspection Neck: non-tender, full range of motion Respiratory: lungs clear, normal breath sounds Cardiac/Chest: regular rate, rhythm, No edema, No gallop (Midline sternotomy clean dry and intact) Abdomen: non-tender, soft Skin: normal color, warm/dry Extremities: normal range of motion, non-tender Neuro/Psych: no motor/sensory deficits, alert, normal mood/affect, oriented x 3 ICD10 Worksheet Patient Problems: Problems Problem Status Onset Severe mitral regurgitation Acute
[2018-04-13] MEDS ORDERED: WARFARIN SODIUM 2.5 MG TAB PO ONE (16:00)
[2018-04-13] MEDS: BEER 1 EACH EA PO SCH (17:27)
[2018-04-13] MEDS: LOSARTAN POTASSIUM 25 MG TAB PO SCH (20:41)
[2018-04-14] MEDS: KETOROLAC 15 MG/1 ML SDV IVP PRN ×3 (01:11→15:05)
[2018-04-14] MEDS: ceFAZolin 2 GM/DEXTROSE 100 ML IV SCH (01:12)
[2018-04-14] MEDS: oxyCODONE IR 5 MG TAB PO PRN ×6 (01:37→23:10)
[2018-04-14 05:27] LABS: PLATELET COUNT 133 10^3/uL (150-400)
[2018-04-14] MEDS: HEPARIN 5,000 UNIT/0.5 ML INJ SC SCH ×3 (05:31→20:07)
[2018-04-14 05:34] LABS: INR 1.13 (0.83-1.16); PROTIME(PATIENT) 14.7 SEC (12.0-15.0)
--- NOTE | 2018-04-14 07:35 | SOAPPROG ---
SOAP Progress Note Assessment/Plan: Assessment: POD#2 Complex MV repair w #34 Physio ring, prophylactic AtriClip ligation left atrial appendage Severe MR - Amenable to complex repair. Extubated in the OR. Stable early postop course. Antithrombotic prophylaxis with Coumadin x 3 mo, target INR 2-3. AF prophylaxis with BB as allowed by HR. 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 No prolonged vasoactive support. No sig fluid overload. HR control w BB. Diuresis when appropriate. Acute expected blood loss anemia - Stable. No blood products transfused. VTE prophylaxis with SCDs/SQ hep until INR > 1.7. Plan: Begin daily diuresis. Cont coumadin 2.5 mg daily. Cont Losartan 25 mg HS w conservative hold parameters. Consider Vwire and chest tube removal later today. Baseline postop echo Mon. Dispo - Home without services in 2 days. 04/14/18 07:34 Subjective: Slept well. Morning walk well tolerated. Satisfactory analgesia. Objective: Vital Signs Temp Pulse Resp BP Pulse Ox 36.6 C 63 16 94/61 L 93 04/14/18 04:00 04/14/18 04:00 04/14/18 04:00 04/14/18 04:00 04/14/18 04:00 Laboratory Results 04/14/18 05:05 04/14/18 05:05 04/13/18 04/14/18 04/15/18 05:59 05:59 04:59 Intake Total 1579.3 1350 Output Total 1795 870 Balance -215.7 480 PT 14.7 SEC (12.0-15.0) 04/14/18 05:05 INR 1.13 (0.83-1.16) 04/14/18 05:05 HR well controlled. Intermittent AJR. Sufficient SBP last noc to begin ARB. Min suppl O2 req. Positive fluid balance. +6 kg overall. CTOP approaching removal criteria. Labs ok. INR yet to rise. Physical Exam - Physical Exam General Appearance: alert, no apparent distress Respiratory: decreased breath sounds (bases), other (blakes x 3 to bulb suction , serosang drainage) Cardiac/Chest: regular rate, rhythm, other (Sternotomy CDI. Vwire intact.) Abdomen: non-tender, soft Skin: warm/dry Extremities: other (no dependent edema) ICD10 Worksheet Patient Problems: Problems Problem Status Onset Severe mitral regurgitation Acute - ICD10 Problem Qualifiers (1) Severe mitral regurgitation
[2018-04-14] MEDS: ASPIRIN 81 MG CHEWABLE TAB PO SCH (08:41)
[2018-04-14] MEDS: PANTOPRAZOLE SODIUM 40 MG TAB PO SCH (08:42)
[2018-04-14] MEDS: SENNOSIDES/DOCUSATE SODIUM TAB PO SCH ×2 (08:42→20:08)
[2018-04-14] MEDS: MUPIROCIN 2% 22 GM OINT NS SCH (08:45)
[2018-04-14] MEDS ORDERED: FUROSEMIDE 20 MG/2 ML VIAL IVP ONE (09:00)
[2018-04-14] MEDS ORDERED: POTASSIUM CL 10 MEQ TAB PO ONE (09:00)
[2018-04-14] MEDS ORDERED: WARFARIN SODIUM 2.5 MG TAB PO ONE (16:00)
[2018-04-14] MEDS: BEER 1 EACH EA PO SCH (18:07)
[2018-04-14] MEDS: LOSARTAN POTASSIUM 25 MG TAB PO SCH (20:13)
[2018-04-15] MEDS: oxyCODONE IR 5 MG TAB PO PRN ×5 (02:28→21:29)
[2018-04-15 05:26] LABS: INR 1.1 (0.83-1.16); PROTIME(PATIENT) 14.4 SEC (12.0-15.0)
[2018-04-15] MEDS: HEPARIN 5,000 UNIT/0.5 ML INJ SC SCH ×3 (05:32→21:31)
--- NOTE | 2018-04-15 07:30 | SOAPPROG ---
SOAP Progress Note Assessment/Plan: Assessment: POD#3 Complex MV repair w #34 Physio ring, prophylactic AtriClip ligation left atrial appendage Severe MR - Amenable to complex repair. Extubated in the OR. Stable early postop course. Antithrombotic prophylaxis with Coumadin x 3 mo, target INR 2-3. AF prophylaxis with BB as allowed by HR. 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 No prolonged vasoactive support. Active diuresis in progress. HR control w BB. Acute expected blood loss anemia - Stable. No blood products transfused. VTE prophylaxis with SCDs/SQ hep until INR > 1.7. Plan: Cont IV diuresis. Inc coumadin to 5 mg today. Keep chest tube one more day. Baseline postop echo tomorrow. Cont inc activity as tolerated. Wean O2. Dispo - Home without services tomorrow afternoon if chest tube out. 04/15/18 07:28 Subjective: More comfortable sleeping in a chair, but pooling his edema in his sacral area. Tolerating light activity w ease. Hopeful for home tomorrow. Objective: Vital Signs Temp Pulse Resp BP Pulse Ox 37.2 C 58 L 16 99/52 L 94 04/15/18 04:00 04/15/18 04:00 04/15/18 04:00 04/15/18 04:00 04/15/18 04:00 Laboratory Results 04/14/18 05:05 04/15/18 05:10 04/14/18 04/15/18 04/16/18 06:59 05:59 05:59 Intake Total Output Total Balance PT 14.4 SEC (12.0-15.0) 04/15/18 05:10 INR 1.10 (0.83-1.16) 04/15/18 05:10 HR remains well controlled, SB/AJR Insufficient BP for ARB Borderline suppl O2 req CTOP still too high to remove +7 kg fluid overload INR yet to rise Physical Exam - Physical Exam General Appearance: alert, no apparent distress Respiratory: crackles (bases), other (pee to bulb suction, thin serosang drainage) Cardiac/Chest: regular rate, rhythm, other (Sternum grossly stable. Sternotomy CDI) Abdomen: non-tender, soft Skin: warm/dry Extremities: swelling (trace dependent) ICD10 Worksheet Patient Problems: Problems Problem Status Onset Severe mitral regurgitation Acute - ICD10 Problem Qualifiers (1) Severe mitral regurgitation
[2018-04-15] MEDS: ASPIRIN 81 MG CHEWABLE TAB PO SCH (08:13)
[2018-04-15] MEDS: SENNOSIDES/DOCUSATE SODIUM TAB PO SCH ×2 (08:14→21:29)
[2018-04-15] MEDS: PANTOPRAZOLE SODIUM 40 MG TAB PO SCH (08:14)
[2018-04-15] MEDS ORDERED: POTASSIUM CL 20 MEQ TAB PO ONE (11:00)
[2018-04-15] MEDS ORDERED: FUROSEMIDE 40 MG/4 ML VIAL IVP ONE (11:00)
[2018-04-15] MEDS: IBUPROFEN 600 MG TAB PO SCH ×2 (11:17→17:35)
[2018-04-15] MEDS: CANN-EASE 2 GM TUBE TP PRN (12:19)
--- NOTE | 2018-04-15 14:50 | CPEKG ---
Test Reason : OPEN Blood Pressure : / mmHG Vent. Rate : 065 BPM Atrial Rate : 065 BPM P-R Int : 174 ms QRS Dur : 095 ms QT Int : 414 ms P-R-T Axes : 047 016 054 degrees QTc Int : 431 ms Sinus rhythm Multiple premature complexes, vent & supraven Probable left ventricular hypertrophy Confirmed by Raheem Morgan ([id number]) on 04/15/2018 2:50:40 PM Referred By: Confirmed By:Raheem Morgan
--- NOTE | 2018-04-15 14:52 | CPEKG ---
Test Reason : OPEN Blood Pressure : / mmHG Vent. Rate : 056 BPM Atrial Rate : 056 BPM P-R Int : 171 ms QRS Dur : 091 ms QT Int : 497 ms P-R-T Axes : 067 028 019 degrees QTc Int : 480 ms Sinus rhythm Borderline prolonged QT interval Confirmed by Raheem Morgan ([id number]) on 04/15/2018 2:51:28 PM Referred By: Confirmed By:Raheem Morgan
[2018-04-15] MEDS ORDERED: WARFARIN SODIUM 5 MG TAB PO ONE (16:00)
--- NOTE | 2018-04-15 16:41 | ASMTCMCOM ---
CM Note CM Note Notes: Reviewed chart regarding discharge plan of care, pt's progress. Per PA notes, pt is POD #3 s/p a complex MVR for severe mitral regurgitation. Pt to likely discharge home independently tomorrow (04/16/18) with no identified needs, if CT is out and pt is medically stable. CM available for any further issues or concerns. Discharge Plan: Home Independently Date Signed: 04/15/2018 04:39 PM Electronically Signed By:Asha Shepard RN
[2018-04-15] MEDS: POLYETHYLENE GLYCOL 3350 17 GM PKT PO PRN (17:41)
[2018-04-15] MEDS: BEER 1 EACH EA PO SCH (18:32)
[2018-04-15] MEDS: MELATONIN 3 MG TAB PO PRN (21:30)
[2018-04-16] MEDS: IBUPROFEN 600 MG TAB PO SCH ×4 (01:27→17:18)
[2018-04-16] MEDS: oxyCODONE IR 5 MG TAB PO PRN ×5 (01:28→21:06)
[2018-04-16 04:29] LABS: INR 1.09 (0.83-1.16); PROTIME(PATIENT) 14.3 SEC (12.0-15.0)
[2018-04-16] MEDS: HEPARIN 5,000 UNIT/0.5 ML INJ SC SCH ×3 (05:44→21:06)
[2018-04-16] MEDS: POLYETHYLENE GLYCOL 3350 17 GM PKT PO PRN (05:48)
--- NOTE | 2018-04-16 07:03 | SOAPPROG ---
SOAP Progress Note Assessment/Plan: Assessment: POD#4 Complex MV repair w #34 Physio ring, prophylactic AtriClip ligation left atrial appendage Severe MR - Amenable to complex repair. Extubated in the OR. Stable early postop course. Antithrombotic prophylaxis with Coumadin x 3 mo, target INR 2-3. AF prophylaxis with BB as allowed by HR/rhythm. 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 No prolonged vasoactive support. Active diuresis in progress. HR control w BB when appropriate. Acute expected blood loss anemia - Stable. No blood products transfused. VTE prophylaxis with SCDs/SQ hep until INR > 1.7. Plan: Cont IV diuresis. Inc coumadin to 7.5 mg today. Keep chest tube one more shift. Baseline postop echo today. Cont inc activity as tolerated. Wean O2. Dispo - Home without services tomorrow morning. 04/16/18 07:02 Subjective: Doing ok. Improving ambulatory capacity. Feels less puffy in the back but more swollen in legs. Awaiting BM. Objective: Vital Signs Temp Pulse Resp BP Pulse Ox 36.7 C 55 L 16 107/58 L 94 04/16/18 04:00 04/16/18 04:00 04/16/18 04:00 04/16/18 04:00 04/16/18 04:00 Laboratory Results 04/14/18 05:05 04/16/18 04:12 04/15/18 04/16/18 04/17/18 05:59 05:59 05:59 Intake Total 1900 Output Total 4045 Balance -2145 PT 14.3 SEC (12.0-15.0) 04/16/18 04:12 INR 1.09 (0.83-1.16) 04/16/18 04:12 Rhythm cont predom AJR Uptrending SBPs Borderline suppl O2 req Improving fluid balance CTOP nearing removal criteria INR yet to budge - Pending Discharge Pending Discharge Within 24 Hours: Yes Pending Discharge Date: 04/17/18 Pending Discharge Time: 11:00 Physical Exam - Physical Exam General Appearance: alert, no apparent distress Respiratory: lungs clear (grossly), other (pee to bulb suction, mostly serous drainage) Cardiac/Chest: regular rate, rhythm, other (Sternotomy CDI) Abdomen: non-tender, soft Skin: warm/dry Extremities: swelling (1+ dependent) ICD10 Worksheet Patient Problems: Problems Problem Status Onset Severe mitral regurgitation Acute - ICD10 Problem Qualifiers (1) Severe mitral regurgitation
[2018-04-16] MEDS ORDERED: FUROSEMIDE 40 MG/4 ML VIAL IVP ONE ×2 (08:00→15:00)
[2018-04-16] MEDS: ASPIRIN 81 MG CHEWABLE TAB PO SCH (08:22)
[2018-04-16] MEDS: SENNOSIDES/DOCUSATE SODIUM TAB PO SCH (08:22)
[2018-04-16] MEDS: PANTOPRAZOLE SODIUM 40 MG TAB PO SCH (08:22)
--- NOTE | 2018-04-16 14:00 | ECHO ---
[email or web address] [address] [address] Main: [phone] Fax: Transthoracic Echocardiogram Name: KAN KERN MR#: [id number] Study Date: 04/16/2018 Study Time: 07:45 AM Date of : 1960 Age: 57 year(s) Height: 177.8 cm (70 in.) Weight: 86.18 kg (190 lb.) BSA: 2.04 m2 Gender: Male Examination: Echo Indication: Baseline postop complex MV repair/#32 physio ring Image Quality: Good Contrast: Requested by: Emily Serna BP: 107 mmHg/58 mmHg Heart Rate: Rhythm: Indication: Baseline postop complex MV repair/#32 physio ring Procedure Staff Fire Equipment Operator: Genoveva Benites RDCS Reading Physician: Ascencion Hardy MD Requesting Provider: Conclusions: Moderately dilated left ventricle. The ejection fraction is estimated to be 50-55 %. LV septal motion consistent with post op motion. LV inferior wall appears hypokinetic.. The left atrium is mildly dilated. The mitral valve is s/p repair. There is no mitral regurgitation. The mean gradient is 3 mmHg.. The aortic valve is normal in appearance and function. Trivial aortic valve regurgitation. When compared to the 02/27/18 study. The mitral valve has been repaired. Measurements: Chambers Valvular Assessment AV/MV Valvular Assessment TV/PV Normal Normal Normal Name Value Range Name Value Range Name Value Range Ao Neha (MM): 3.7 cm (2.2 cm-3.7 AV Vmax: 1.21 m/s (1 m/s-1.7 cm) m/s) IVSd (2D): 0.9 cm (0.6 cm-1.1 AV maxP mmHg ( - ) cm) AV meanP mmHg ( - ) LVDd (2D): 6.2 cm (4.2 cm-5.9 LVOT Vmax: 0.69 m/s (0.7 m/s-1.1 cm) m/s) LVPWd (2D): 0.7 cm (0.6 cm-1 MV E Vmax: 1.62 m/s ( - ) cm) MV A Vmax: 0.60 m/s ( - ) LVEF (MOD4): 57 % (>=55 %) MV E/A: 2.70 ( - ) EF Range: 50-55 % MV maxP mmHg ( - ) MV meanP mmHg ( - ) Continued Measurements: Chambers Valvular Assessment AV/MV Patient: KAN KERN Study Date: 04/16/2018 Page 1 of 2 07:45 AM Name Value Name Value LADs: 4.3 cm MV E/E' Septal: 27.70 LADs Lon.2 cm MV E/E' Lateral: 29.10 LA Area: 24.4 cm2 MV VTI: 58.70 cm LA Volume: 88 ml LA Volume Index: 43.1 ml/m2 Findings: Left Ventricle: Moderately dilated left ventricle. No LV hypertrophy. The ejection fraction is estimated to be 50-55 %. Diastolic dysfunction is present. . LV septal motion consistent with post op motion. LV inferior wall appears hypokinetic.. Right Ventricle: Normal size right ventricle. Left Atrium: The left atrium is mildly dilated. Right Atrium: The right atrium is normal in size. Mitral Valve: There is no mitral valve regurgitation. An annuloplasty ring is noted in the mitral valve position. The mitral valve is s/p repair. There is no mitral regurgitation. The mean gradient is 3 mmHg.. Aortic Valve: The aortic valve is normal in appearance and function. The aortic valve is tri-leaflet. Trivial aortic valve regurgitation. Tricuspid Valve: The tricuspid valve is normal in appearance and function. Mild tricuspid regurgitation is present. Pulmonic Valve: The pulmonic valve is normal in appearance and function. Aorta: The aorta is normal. Pericardium: No pericardial effusion. (No Signature Object) Patient: KAN KERN Study Date: 04/16/2018 Page 2 of 2 07:45 AM [id number]
[2018-04-16] MEDS ORDERED: POTASSIUM CL 10 MEQ TAB PO ONE (15:00)
[2018-04-16] MEDS ORDERED: WARFARIN SODIUM 7.5 MG TAB PO ONE (16:00)
[2018-04-16] MEDS: BEER 1 EACH EA PO SCH (17:19)
[2018-04-16] MEDS: CANN-EASE 2 GM TUBE TP PRN (21:05)
[2018-04-16] MEDS: SENNOSIDES/DOCUSATE SODIUM TAB PO PRN (21:05)
[2018-04-16] MEDS: MELATONIN 3 MG TAB PO PRN (21:06)
[2018-04-16] MEDS ORDERED: SODIUM CL NASAL 45 ML BTL EACHNARE PRN (21:07)
[2018-04-17] MEDS: IBUPROFEN 600 MG TAB PO SCH ×2 (01:09→05:54)
[2018-04-17] MEDS: HEPARIN 5,000 UNIT/0.5 ML INJ SC SCH (05:54)
[2018-04-17 06:14] LABS: INR 1.21 (0.83-1.16); PROTIME(PATIENT) 15.5 SEC (12.0-15.0)
--- NOTE | 2018-04-17 07:10 | SOAPPROG ---
SOAP Progress Note Assessment/Plan: Assessment: POD#5 Complex MV repair w #34 Physio ring, prophylactic AtriClip ligation left atrial appendage Severe MR - Amenable to complex repair. Extubated in the OR. Stable early postop course. Antithrombotic prophylaxis with Coumadin x 3 mo, target INR 2-3. AF prophylaxis with BB as allowed by HR/rhythm. 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 No prolonged vasoactive support. Active diuresis in progress. HR control w BB when appropriate. Acute expected blood loss anemia - Stable. No blood products transfused. VTE prophylaxis with SCDs/SQ hep until INR > 1.7. Plan: Ok for discharge. Instructions re diet, meds, activity, f/u and wound care to be reviewed. 04/17/18 07:10 Subjective: Better every day. +BM. Much less swollen. Comfortable going home. Objective: Vital Signs Temp Pulse Resp BP Pulse Ox 36.5 C 57 L 12 123/65 H 94 04/17/18 04:00 04/17/18 04:00 04/17/18 04:00 04/17/18 04:00 04/17/18 04:00 Laboratory Results 04/14/18 05:05 04/17/18 05:55 04/16/18 04/17/18 04/18/18 05:59 05:59 05:59 Intake Total 1900 1900 Output Total 4045 5405 Balance -2145 -3505 PT 15.5 SEC (12.0-15.0) H 04/17/18 05:55 INR 1.21 (0.83-1.16) H 04/17/18 05:55 HR controlled, SB/AJR SBPs and K ok w aggressive diuresis Borderline suppl O2 req INR beginning to rise Physical Exam - Physical Exam General Appearance: alert, no apparent distress Respiratory: lungs clear Cardiac/Chest: regular rate, rhythm, other (Sternum grossly stable. Sternotomy CDI) Abdomen: non-tender, soft Skin: warm/dry Extremities: swelling (trace) ICD10 Worksheet Patient Problems: Problems Problem Status Onset Severe mitral regurgitation Acute - ICD10 Problem Qualifiers (1) Severe mitral regurgitation
[2018-04-17] MEDS ORDERED: POTASSIUM CL 10 MEQ TAB PO ONE (08:00)
[2018-04-17] MEDS ORDERED: FUROSEMIDE 40 MG/4 ML VIAL IVP ONE (08:00)
[2018-04-17 08:16] VITALS: BP 121/54
--- NOTE | 2018-04-17 08:26 | PDDCSUM ---
Discharge Summary Discharge Summary: DATE OF ADMISSION: 04/11/18 DATE OF DISCHARGE: 04/17/18 DISPOSITION: Home, self-care PRINCIPAL ADMISSION DIAGNOSES: Severe mitral valve regurgitation PRINCIPAL DISCHARGE DIAGNOSES: 1. Moderate pulmonary hypertension 2. Coronary artery disease excluded 3. 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 Status post complex mitral valve repair 5. Status post prophylactic clip exclusion of the left atrial appendage 6. Acute expected blood loss anemia HISTORY OF PRESENT ILLNESS: 57 yo male with a systolic murmur on annual exam discovered to have severe MR associated with posterior mitral leaflet prolapse, significant left sided chamber enlargement, mild PHTN and hyperdynamic LV systolic fx. Admitted in advance of elective MV repair to complete surgical risk stratification. PERTINENT PAST MEDICAL HISTORY: Anxiety with secondary palpitations (single 4 beat run of VT on 3 wk Holter monitor; no AF), daily alcohol user (5-6 light beers for many years) MEDICATIONS ON ADMISSION: Melatonin 3 mg HS prn, Xanax 0.5 mg HS prn, Vit D3 1,000 units daily, herbal supplement daily ALLERGIES/SENSITIVITIES: NKDA CONSULTANTS: Pulmonology/critical care (Devyn) PROCEDURES/IMAGIN/31 (Antonio): Right and left heart catheterization with selective coronary angiography and left ventriculogram. Access right femoral vessels. Findings: PA 50/18, PCWP 24, CI 2.5. Rt dominant coronary circulation. No angiographic evidence of CAD. LVEDP 20. LVEF 60%. 04/12 (Eric): Complex mitral valve repair with triangular resection of P2, goretex chordal reconstruction, and annuloplasty with a 32 mm Physio ring. Prophylactic AtriClip exclusion of the left atrial appendage. 04/16 (Hayley): Transthoracic echocardiogram: Mildly dilated LA. Moderately dilated LV. LVEF 50-55%. No MR ABBREVIATED HOSPITAL COURSE BY ACTIVE PROBLEM LIST: 1. 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 Valvular competence restored with a complex repair. Extubated in the OR. Stable early postop course. Antithrombotic prophylaxis with Coumadin x 3 mo, target INR 2-3. AF prophylaxis with BB as allowed by HR. 2. 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 No prolonged vasoactive support. Significant volume overload well tolerated. Actively diuresed w stable renal fx. 3. Acute expected blood loss anemia - Stable. No blood products transfused. DISCHARGE CLINICAL INFORMATION: Sternum grossly stable. Sternotomy CDI, sutured, +Dermabond. HR 50s, SB w intermittent AJR. SBP 100s. SpO2 > 90% RA. Wt 4.3 kg above admission at 79.4 kilos. WBC 9.3, Hgb 11.6, HCT 34.1, Plt 133, Na 132, K 4.1, Cr 0.8 Coumadin flowsheet: Date INR mg 04/13 1.12 2.5 04/14 1.13 2.5 04/15 1.1 5 11 1.09 7.5 04/17 1.2 7.5 DISCHARGE MEDICATIONS: As on admission with the following adjustments NEW prescriptions: 1. Lasix 40 mg BID x 3 days, then reduce to 40 mg once daily 2. Klor-Con 20 meq once daily x 3 days, then reduce to 10 meq once daily 3. Coumadin 7.5 mg daily, or as directed by INR/anticoagulation clinic 4. Oxycodone 5 mg one-half tab to two tabs q 4h prn breakthrough incisional discomfort 5. OTC: Baby ASA once daily until INR stable in therapeutic range, hold for INR > 3; Ibuprofen and Tylenol w meals and before bed prn pain. Max daily dose of tylenol 3,000 mg. Max daily dose of ibuprofen 2,400 mg, not to exceed 1 week of regular use, hold ibuprofen if INR > 3. FOLLOW UP APPOINTMENTS: 1. CV surgery: with Dr Reyes at [facility] on 04/24 at 11:00 am. 2. Cardiology: with Saray Werner PA-C at [facility] within 4-6 weeks. Appointment to be established during surgical visit. FOLLOW UP TESTIN. INR at [facility] on 04/20 at 3 pm. 2. CXR prior to surgical appointment.
[2018-04-17] MEDS: SENNOSIDES/DOCUSATE SODIUM TAB PO PRN (08:32)
[2018-04-17] MEDS: PANTOPRAZOLE SODIUM 40 MG TAB PO SCH (08:33)
[2018-04-17] MEDS: ASPIRIN 81 MG CHEWABLE TAB PO SCH (08:33)
--- NOTE | 2018-04-17 10:03 | ASDISCHSUM ---
Discharge Information Plan Status:Home with No Needs Medically Cleared to Leave:04/16/2018 Discharge Date:04/16/2018 CM D/C Disposition:Home, Routine, Self-Care ADT D/C Disposition:Home, Routine, Self-Care Projected Discharge Date:04/16/2018 Transportation at D/C:Family Discharge Delay Reason: Follow-Up Date:04/16/2018 Discharge Slot: Final Diagnosis: Placement Information Patient Contact Information Contact Name:JOSE Relationship: Address:[address] City:[place] Alternate Phone: [facility]/Zip Code:[place] [address] Email: Financial Information Financial Class:HMO and PPO Plans Primary Plan Desc:[facility] DORIE SOTELO MD Primary Plan Number:[id number] Secondary Plan Desc: Secondary Plan Number: Assessment Information LACE LACE Length of stay for Answers: 4-6 days current admission Acuity / Level of Answers: Yes Care: Did the patient have an inpatient admission? Comorbidities - select Answers: Other Notes: mitral valve all that apply regurg, possible afib # of Emergency department Answers: 0 visits in the last 6 months Score: 8 Date Signed: 04/17/2018 10:01 AM Electronically Signed By:Clementina Childress RN [facility] Initial CM Assessment Living Arrangements What is your living Answers: With Spouse arrangement? Who do you live with? Type Of Residence What kind of residence do Answers: House you live in? Discharge Plan Comments Coordination Status Comments Notes: Patient is a 57yo male whose PCP discovered a heart murmur and sent him for an ECHO which confirmed severe MR with severely dilated LA/LV, mild MR, trivial AI and a LVDF of 70%. Patient to go for mitral valve repair/replace. No therapies ordered at this time. D/C plan TBD. CM will follow. Date Signed: 04/12/2018 11:46 AM Electronically Signed By:Lilliam Rodgers LCSW [facility] CM Progress Note CM Note CM Note Notes: Reviewed chart regarding discharge plan of care, pt's progress. Per [facility] notes, pt is POD #3 s/p a complex MVR for severe mitral regurgitation. Pt to likely discharge home independently tomorrow (04/16/18) with no identified needs, if CT is out and pt is medically stable. CM available for any further issues or concerns. Discharge Plan: Home Independently Date Signed: 04/15/2018 04:39 PM Electronically Signed By:Asha Shepard RN Case Management Discharge Plan Note Case Management Discharge Discharge Order Complete? Answers: Yes Patient to Obtain Answers: via Family Medications Discharge Comments Notes: 04/17/2018 Case Management Note Pt to discharge with family support and follow up as directed. Date Signed: 04/17/2018 10:02 AM Electronically Signed By:Clementina Childress RN Intervention Information
[2018-04-17] MEDS ORDERED: WARFARIN SODIUM 7.5 MG TAB PO SCH (16:00)
== END 2018-04-17 11:52 | disposition home or self-care (01) | DRG 217 ==
LOC: FCATH 09:15 → F2N 10:58 → F2W 12:06 → F2N 04-12 11:21 → F2W 04-13 12:45
PROVIDERS: ADMIT Thoracic Surgery (Cardiothoracic Vascular Surgery); ATTEND Thoracic Surgery (Cardiothoracic Vascular Surgery)
DX: I34.0 Nonrheumatic mitral (valve) insufficiency (principal); D62 Acute posthemorrhagic anemia; I42.9 Cardiomyopathy, unspecified; Z96.641 Presence of right artificial hip joint
CPT/HCPCS: 82435-PO; 82565-PO; 82947-PO; 84132-PO; 84295-PO; 84520-PO; 85014-PO; 97116-GP; 97162-GP; 97165-GO; 97535-GO; C1760; J0153; J0282; J0690; J1100; J1200; J1265; J1644; J1815; J1885; J1940; J2001; J2150; J2250; J2260; J2270; J2370; J2405; J2704; J2720; J2930; J3010; J3475; P9041; Q9967

== ENCOUNTER → 2018-04-24 | Outpatient (CLI) | payer OTHER | LOC: FIMAGING 09:54 | PROVIDERS: ATTEND Thoracic Surgery (Cardiothoracic Vascular Surgery) | DX: J90 Pleural effusion, not elsewhere classified (principal); I05.9 Rheumatic mitral valve disease, unspecified; Z98.890 Other specified postprocedural states ==